=== PATIENT | female | born 1955 | race Caucasian/White ===

== ENCOUNTER → 2017-12-27 | Outpatient (CLI) | payer OTHER ==
[~2017-12-27] MED LIST: AUGMENTIN 875875 MG PO; LIPITOR 10 MG10 M1 PO; SYNTHROID25 MCG PO
== END ==
LOC: RAD 02:20
DX: Z12.31 Encounter for screening mammogram for malignant neoplasm of breast (principal)

== ENCOUNTER → 2020-01-22 | Outpatient (CLI) | payer OTHER | LOC: CAT 11:15 | DX: Z13.6 Encounter for screening for cardiovascular disorders (principal); I25.10 Atherosclerotic heart disease of native coronary artery without angina pectoris; E78.00 Pure hypercholesterolemia, unspecified ==

== ENCOUNTER → 2020-02-05 | Outpatient (CLI) | payer BC, OTHER | LOC: SJCVCIMAG 09:52 | PROVIDERS: ATTEND Internal Medicine Cardiovascular Disease | DX: R93.1 Abnormal findings on diagnostic imaging of heart and coronary circulation (principal); E78.00 Pure hypercholesterolemia, unspecified; I10 Essential (primary) hypertension; I25.10 Atherosclerotic heart disease of native coronary artery without angina pectoris; Z82.49 Family history of ischemic heart disease and other diseases of the circulatory system ==

== ENCOUNTER 2020-09-01 09:09 | Emergency (ER) | payer BC, OTHER ==
[~2020-09-01] VITALS: Ht 170.2 cm; Wt 68.0 kg
[2020-09-01] MEDS ORDERED: SYNTHROID112 MC1 PO (09:20)
[2020-09-01] MEDS ORDERED: EDARBYCLOR 40-1 EACH PO (09:20)
[2020-09-01] MEDS ORDERED: ROSUVASTATIN CA20 MG PO (09:20)
[2020-09-01] MEDS ORDERED: PROGESTERONE200 MG PO (09:21)
[2020-09-01 11:09] VITALS: BP 133/81
== END 2020-09-01 11:09 | disposition home or self-care (01) ==
LOC: ER 09:09
DX: S61.432A Puncture wound without foreign body of left hand, initial encounter (principal); S61.431A Puncture wound without foreign body of right hand, initial encounter; E78.00 Pure hypercholesterolemia, unspecified; E03.9 Hypothyroidism, unspecified; Z79.899 Other long term (current) drug therapy; Z98.51 Tubal ligation status; Z90.89 Acquired absence of other organs; Z20.3 Contact with and (suspected) exposure to rabies; W55.01XA Bitten by cat, initial encounter; Y93.89 Activity, other specified; Y92.89 Other specified places as the place of occurrence of the external cause; Y99.9 Unspecified external cause status

== ENCOUNTER → 2021-05-06 | Outpatient (CLI) | payer OTHER ==
[~2021-05-06] MED LIST changes: +EDARBYCLOR 40-1 EACH PO; +PROGESTERONE200 MG PO; +ROSUVASTATIN CA20 MG PO; +SYNTHROID112 MC1 PO
== END ==
LOC: CAT 12:33
PROVIDERS: ATTEND Internal Medicine Cardiovascular Disease
DX: Z13.6 Encounter for screening for cardiovascular disorders (principal); I25.10 Atherosclerotic heart disease of native coronary artery without angina pectoris

== ENCOUNTER → 2021-07-07 | Outpatient (CLI) | payer BC, OTHER | LOC: SJCVCIMAG 14:59 | PROVIDERS: ATTEND Internal Medicine Cardiovascular Disease | DX: E78.5 Hyperlipidemia, unspecified (principal); Z01.810 Encounter for preprocedural cardiovascular examination; I10 Essential (primary) hypertension; Z82.49 Family history of ischemic heart disease and other diseases of the circulatory system ==